=== PATIENT | female | born 2000 | race Caucasian/White ===

== ENCOUNTER 2020-07-14 10:08 | Emergency (ER) | payer OTHER, SELFPAY ==
[2020-07-14 11:15] VITALS: BP 111/61; PULSE 78; RESP 16; TEMP 36.6; O2SAT 99; BMI 28.3
--- NOTE | 2020-07-14 11:55 | ED_ITS ---
HPI - Skin/Abscess/Foreign Bdy General Chief complaint: Skin/Abscess/Foreign Body Stated complaint: allergic reaction Time Seen by Provider: 07/14/20 11:46 Source: patient Mode of arrival: ambulatory Limitations: no limitations History of Present Illness HPI narrative: 19 y/o female with history of eczema presenting with worsening skin rash and eczema to her entire body for the last 1 week. She has been taking Benadryl and her home Claritin without improvement. She has tried topical benadryl and hydrocortisone but it severely kyle her rash. She states it is so itchy that she can barely sleep at night. It is worse in the flexor surface of her arms and her bilateral thighs. She denies new lotions, detergents, soaps or creams. She has been avoiding all of those things given her known sensitive skin and difficulty controlling her eczema. She has never seen a geological science teacher for this before. MD complaint: rash Onset (ago): week(s) (1) Tetanus up to date: yes Location: generalized Severity: severe Quality: burning and pruritic Related Data Previous Rx's Medication Instructions Recorded cephalexin 500 mg PO TID 7 Days #21 cap 07/14/20 hydrocortisone 1 appl TOPICAL TID PRN #28 g 07/14/20 prednisone 10 mg PO PER PKG DIR #48 ea 07/14/20 Allergies Allergy/AdvReac Type Severity Reaction Status Date / Time peanut [PEANUT] Allergy Unknown UNKNOWN Verified 07/14/20 11:18 Review of Systems Review of Systems: Constitutional: No Fever, No Chills Gastrointestinal: No Nausea, No Vomiting Musculoskeletal: No joint pain, No Myalgias Skin: + Skin Lesions, + rash Neuro: No Weakness, No Numbness Psych: + Anxiety/Panic, No Depression Heme/Lymph: No Bruising, No Lymphadenopathy PMFSH Past Medical History Attestation statement: The following information was validated with the patient. Medical History delivery delivered Eczema Social History Social History Alcohol intake: never Smoking Status: Never smoker Use of substances other than those prescribed or required for medical reasons: No Advance Directives: Yes Advance Directives Information Provided: Yes Advance Directives on File: No Patient : No Physical Exam Vital Signs: Vital Signs: Last Vital Signs Temp 97.8 F 07/14/20 11:15 Pulse 78 07/14/20 11:15 Resp 16 07/14/20 11:15 BP 111/61 07/14/20 11:15 Pulse Ox 99 07/14/20 11:15 Body Mass Index 28.3 Appearance: Alert. Oriented X3. No acute distress. HEENT: normal inspection CVS: Normal heart rate and rhythm. Pulses normal. Respiratory: No respiratory distress. CTAB Extremities: diffuse erythematous, scaling dry maculopapular rash on bilateral upper extremities, bilateral thighs and chest wall. flexor areas of bilateral arms are excoriated, ertythematous and warm to touch. Neuro: Oriented X 3. No motor deficit. No sensory deficit. Course Course Course Narrative: 19 y/o female presenting with diffuse severe eczema. This will require systemic steroids for treatment as well as increase in antihistamines. Will treat empirically for possible cellulitis in her bilateral AC fossas given warmth and excoriations. She was encouraged to f/u with her PCP JOSSY and importance of following up with a geological science teacher was stressed. She expressed understanding and will follow up. Stable for discharge. Critical Care Time Critical Care Time Critical Care Time: No Discharge Plan Discharge Clinical Impression: Eczema Qualifiers: Eczema type: flexural Qualified Code(s): L20.82 - Flexural eczema Patient Disposition: Home, Self-Care Instructions: Eczema (ED) Additional Instructions: Take the prescribed prednisone taper as directed - start taking TOMORROW - you were given your 1st dose in the ER today. Take Benadryl 50 mg every 6 hours as needed for itching. Take the prescribed antibiotic as directed for possible superimposed skin infection. Follow up with your doctor. Recommend follow up with Dermatology. Prescriptions: New prednisone 10 mg tablets,dose pack 10 mg PO PER PKG DIR Qty: 48 RF: 0 hydrocortisone 2.5 % cream 1 appl topical TID PRN (Reason: itching) Qty: 28 RF: 0 cephalexin 500 mg capsule 500 mg PO TID 7 Days Qty: 21 RF: 0 Referrals: Dianne Muñiz PA-C [Physician Agronomy Location Manager] - 2 days Interventions: ED Discharge Assessment Last Done: 07/14/20 12:20 Discharge Date/Time: 07/14/20 12:21
[2020-07-14] MEDS: predniSONE 20 MG TABLET 60 MG PO (11:58)
[2020-07-14] MEDS: diphenhydrAMINE HCL 25 MG TABLET 50 MG PO (11:59)
[2020-07-14] MEDS: cephALEXin 250 MG CAPSULE 500 MG PO (11:59)
== END 2020-07-14 12:21 | disposition home or self-care (01) ==
PROVIDERS: Emergency Provider Emergency Medicine Emergency Medical Services; PCP Physician Assistant
DX: L20.82 Flexural eczema (principal)
CPT/HCPCS: 99283; 99284; Q0163

== ENCOUNTER 2020-09-05 18:57 | Emergency (ER) | payer OTHER, SELFPAY ==
[2020-09-05 19:28] VITALS: BP 123/74; PULSE 115; RESP 20; TEMP 529.4; TEMP 985; O2SAT 100; BMI 29.2
[2020-09-05 22:44] LABS: MANUAL DIFF FLAG NO
[2020-09-05 22:45] LABS: Basophils Percent Auto 0.2 % (0-2); Eosinophils Absolute Auto 0.8 X10*3/uL (0.0-0.4); Eosinophils Percent Auto 8.4 % (0-4); Hematocrit 42.2 % (37-47); Imm Gran Abs Auto 0.03 X10*3/uL (0.00-0.03); Imm Gran Pct Auto 0.3 % (0.0-0.4); Lymphocytes Percent Auto 22.2 % (20-40); Mean Corpuscular HGB Conc 33.2 g/dl (31.0-35.0); Mean Corpuscular Hemoglobin 27.3 pg (27.0-33.0); Mean Corpuscular Volume 82.4 fL (80-98); Mean Platelet Volume 10.9 fL (9.4-12.3); Monocytes Absolute Auto 0.5 X10*3/uL (0.1-1.2); Monocytes Percent Auto 5.2 % (2-11); Neutrophils Absolute Auto 5.7 X10*3/uL (2.0-8.3); Neutrophils Percent Auto 63.7 % (45-73); Platelet Count 284 X10*3/uL (160-400); Red Blood Count 5.12 X10*6/uL (4.20-5.50); Red Cell Distribution Width 13.9 % (11.0-16.0); White Blood Count 8.9 X10*3/uL (4.8-10.8)
--- NOTE | 2020-09-05 22:45 | ED_ITS ---
HPI - Allergic Reaction General Chief complaint: Allergic Reaction Stated complaint: allergic reaction Time Seen by Provider: 09/05/20 22:29 Source: patient Mode of arrival: ambulatory Limitations: no limitations History of Present Illness HPI narrative: Patient comes emergency room complaining of an allergic reaction, itchy skin. Denies shortness of breath. Patient states that she is known to have eczema, but over the last month, every day that she wakes up, she has diffuse hives and itching. Patient states that she is known to be allergic to peanuts. Patient states this happens to her every day but today the hives have not gone away yet. Patient denies shortness of breath, no throat swelling, no foreign body sensation. Approximately 5 hours ago, patient took Benadryl at home, denies using any steroids. MD complaint: allergic reaction and hives Related Data Previous Rx's Medication Instructions Recorded cephalexin 500 mg PO TID 7 Days #21 cap 07/14/20 hydrocortisone 1 appl TOPICAL TID PRN #28 g 07/14/20 prednisone 10 mg PO PER PKG DIR #48 ea 07/14/20 desonide 1 appl TOPICAL BID #118 ml 09/06/20 famotidine [Pepcid] 40 mg PO DAILY PRN #7 tab 09/06/20 prednisone 50 mg PO DAILY #5 tab 09/06/20 Allergies Allergy/AdvReac Type Severity Reaction Status Date / Time peanut [PEANUT] Allergy Unknown UNKNOWN Verified 07/14/20 11:18 Review of Systems Review of Systems: Constitutional : No Weight loss, No Fever, No Chills, No Night Sweats, No Fatigue, No Malaise ENT/Mouth : No Hearing loss, No Ear Pain, No Nasal Congestion, No Sinus Pain, No Hoarseness, No sore throat, No Rhinorrhea, No Swallowing Difficulty Eyes: No Eye Pain, No Swelling, No Redness, No Foreign Body, No Discharge, No Vision Changes Cardiovascular : No Chest Pain, No SOB, No Dyspnea on Exertion, No Orthopnea, No Edema, No Palpitations Respiratory : No Cough, No Sputum, No Wheezing, No Smoke Exposure, No Dyspnea Gastrointestinal : No Nausea, No Vomiting, No Diarrhea, No Constipation, No abdominal Pain, No Hematochezia, No Melena Genitourinary : no irregular bleeding, No Dysuria, No Urinary Frequency, No Hematuria, No Urinary Incontinence, No Urgency, No Flank Pain, No Urinary Flow Changes, No Hesitancy Musculoskeletal : No joint pain, No Myalgias, No Joint Swelling Skin : Diffuse hives, itching Neuro : No Weakness, No Numbness, No Paresthesias, No Loss of Consciousness, No Dizziness, No Headache Psych : No Anxiety/Panic, No Depression, No SI/HI/AH/VH, No Social Issues, Heme/Lymph: No Bruising, No Bleeding,No Lymphadenopathy Endocrine : No Polyuria, No Polydipsia, No Temperature Intolerance [facility] Past Medical History Medical History delivery delivered Eczema Social History Social History Alcohol intake: never Advance Directives: No Advance Directives Information Provided: Yes Physical Exam Vital Signs: Vital Signs: Last Vital Signs Temp 98.4 F 09/06/20 00:00 Pulse 104 H 09/06/20 00:00 Resp 22 H 09/06/20 00:00 BP 124/84 09/06/20 00:00 Pulse Ox 100 09/06/20 00:00 Body Mass Index 29.2 Appearance: Alert. Oriented X3. No acute distress. Eyes: Pupils equal, round and reactive to light. ENT: Pharynx normal. Neck: Normal inspection. Neck supple. No lymph nodes noted. No crepitus CVS: Normal heart rate and rhythm. Pulses normal. Normal S1 and S2 Respiratory: No respiratory distress. Breath sounds normal. No Wheezing. No rales Abdomen: Soft and nontender. No rigidity. No distention. good BS x4 Skin: Patient has diffuse eczema, but additionally she has diffuse hives head to toe Extremities: No lower extremity edema. No lower extremity edema. No Lacerations. No Rash Neuro: Oriented X 3. No motor deficit. No sensory deficit. Moving all extermities. No slurred speech. Course Course Course Narrative: Patient received 2 courses of Solu-Medrol, Pepcid, Benadryl. The skin did improve, however patient does have significant overlying eczema. Patient will follow-up with her primary care physician, states she has an appointment in November with Dermatology. In the meantime patient will be sent home with prednisone. MDM - Allergic Reaction Lab Data Result diagrams: 09/05/20 22:40 09/05/20 22:40 Labs: Lab Results 09/05/20 09/05/2021 Range/Units 22:40 22:40 00:20 WBC 8.9 (4.8-10.8) X10*3/uL RBC 5.12 (4.20-5.50) X10*6/uL Hgb 14.0 (12.0-16.0) g/dl Hct 42.2 (37-47) % MCV 82.4 (80-98) fL MCH 27.3 (27.0-33.0) pg MCHC 33.2 (31.0-35.0) g/dl RDW 13.9 (11.0-16.0) % Plt Count 284 (160-400) X10*3/uL MPV 10.9 (9.4-12.3) fL Immature Gran % (Auto) 0.3 (0.0-0.4) % Neut % (Auto) 63.7 (45-73) % Lymph % (Auto) 22.2 (20-40) % Moffat % (Auto) 5.2 (2-11) % Eos % (Auto) 8.4 H (0-4) % Baso % (Auto) 0.2 (0-2) % Lymph # (Auto) 2.0 (1.2-4.9) X10*3/uL Moffat # (Auto) 0.5 (0.1-1.2) X10*3/uL Eos # (Auto) 0.8 H (0.0-0.4) X10*3/uL Baso # (Auto) 0.0 (0.0-0.2) X10*3/uL Abs Immat Gran (auto) 0.03 (0.00-0.03) X10*3/uL Absolute Neuts (auto) 5.7 (2.0-8.3) X10*3/uL Absolute Nucleated RBC 0.000 (0.0-0.012) X10*3/uL Nucleated RBC % (auto) 0.0 (0.0-0.2) /100WBC Sodium 142 (135-145) mmol/L Potassium 3.9 (3.3-5.1) mmol/L Chloride 109 H (96-108) mmol/L Carbon Dioxide 21 L (22-29) mmol/L Anion Gap 16 (12-20) BUN 7 L (9-16) mg/dL Creatinine 0.66 (0.5-1.4) mg/dL Estim Creat Clear Calc 120.9 Estimated GFR > 60 Random Glucose 99 (60-115) mg/dL Calcium 9.5 (8.4-10.2) mg/dL Urine Color YELLOW Urine Appearance HAZY Urine pH 7.5 (5.0-8.0) Ur Specific Davis 1.015 (1.005-1.025) Urine Protein 1+ H (NEG-TRACE) MG/DL Urine Glucose (UA) NEG (NEG) MG/DL Urine Ketones 5 (NEG) MG/DL Urine Blood NEG (NEG) Urine Nitrite NEG (NEG) Ur Leukocyte Esterase NEG (NEG) Urine RBC 0 (0) /HPF Urine WBC 0-2 (0-4) /HPF Ur Squamous Epith Cells 4+ /LPF Urine Bacteria TRACE /LPF Urine Mucus 2+ /LPF Discharge Plan Discharge Clinical Impression: Allergic reaction, Eczema Patient Disposition: Home, Self-Care Instructions: General Allergic Reaction (ED) Additional Instructions: Please follow-up with your primary care physician tomorrow. If you have any worsening or new symptoms, please return to the emergency room or call 911 Prescriptions: New prednisone 50 mg tablet 50 mg PO DAILY Qty: 5 RF: 0 famotidine [Pepcid] 40 mg tablet 40 mg PO DAILY PRN (Reason: allergic reaction) Qty: 7 RF: 0 desonide 0.05 % lotion 1 appl topical BID Qty: 118 RF: 0 No Action prednisone 10 mg tablets,dose pack 10 mg PO PER PKG DIR Qty: 48 RF: 0 hydrocortisone 2.5 % cream 1 appl topical TID PRN (Reason: itching) Qty: 28 RF: 0 cephalexin 500 mg capsule 500 mg PO TID 7 Days Qty: 21 RF: 0
[2020-09-05] MEDS: diphenhydrAMINE HCL 50 MG/ML VIAL IVPUSH (22:46)
[2020-09-05] MEDS: methylPREDNISolone Sod Succ 125 MG/2 ML VIAL IVPUSH (22:52)
[2020-09-05] MEDS: Famotidine/PF 20 MG/2 ML VIAL IVPUSH (22:53)
[2020-09-05 23:21] LABS: Anion Gap 16 (12-20); Blood Urea Nitrogen 7 mg/dL (9-16); Calcium 9.5 mg/dL (8.4-10.2); Carbon Dioxide 21 mmol/L (22-29); Chloride 109 mmol/L (96-108); Creatinine Clr Calc Pharmacy 120.9; Estimated Glomerular Filt Rate > 60; Glucose Random 99 mg/dL (60-115); Potassium 3.9 mmol/L (3.3-5.1); Sodium 142 mmol/L (135-145)
[2020-09-06] VITALS: BP 124/84; PULSE 104; RESP 22; TEMP 36.9; O2SAT 100
--- NOTE | 2020-09-06 | ECG_ITS ---
Test Reason : TACHY Blood Pressure : / mmHG Vent. Rate : 113 BPM Atrial Rate : 113 BPM P-R Int : 126 ms QRS Dur : 070 ms QT Int : 318 ms P-R-T Axes : 058 050 031 degrees QTc Int : 436 ms Sinus tachycardia Otherwise normal ECG No previous ECGs available Referred By: Linette Xie Electronically Signed By:Vu Vergara
[2020-09-06 00:28] LABS: Appearance Urine HAZY; Color Urine YELLOW; Glucose Urine UA NEG (NEG); Leukocyte Esterase Urine NEG (NEG); Nitrite Urine NEG (NEG); PH 7.5 (5.0-8.0); Specific Gravity - Urine 1.015 (1.005-1.025); Urine Blood NEG (NEG); Urine Ketones 5 MG/DL (NEG); Urine Protein 1+ MG/DL (NEG-TRACE)
[2020-09-06 00:38] LABS: Bacteria Urine TRACE /LPF; Mucus Urine 2+ /LPF; RBC Urine 0 /HPF (0); Squamous Epithelial Cell Urine 4+ /LPF; WBC Urine 0-2 /HPF (0-4)
[2020-09-06] MEDS: methylPREDNISolone Sod Succ 125 MG/2 ML VIAL IVPUSH (00:39)
[2020-09-06] MEDS: Famotidine/PF 20 MG/2 ML VIAL IVPUSH (00:43)
== END 2020-09-06 02:37 | disposition home or self-care (01) ==
PROVIDERS: Emergency Provider Emergency Medicine; PCP Physician Assistant
DX: L23.9 Allergic contact dermatitis, unspecified cause (principal); Z79.899 Other long term (current) drug therapy
CPT/HCPCS: 36415; 80048; 81001; 85025; 93005; 96374; 96375; 96376; 99284; J1200; J2930

== ENCOUNTER 2020-09-15 11:24 | Emergency (ER) | payer OTHER, SELFPAY ==
[2020-09-15 11:58] VITALS: BP 120/62; PULSE 100; RESP 18; TEMP 36.8; O2SAT 97; BMI 28.3
[2020-09-15] MEDS: 0.9 % Sodium Chloride 1,000 ML 999 ML IV (12:47)
[2020-09-15] MEDS: methylPREDNISolone Sod Succ 125 MG/2 ML VIAL IVPUSH (12:49)
[2020-09-15] MEDS: diphenhydrAMINE HCL 50 MG/ML VIAL IVPUSH (12:49)
[2020-09-15] MEDS: Famotidine/PF 20 MG/2 ML VIAL IVPUSH (12:50)
[2020-09-15 12:57] LABS: MANUAL DIFF FLAG NO
[2020-09-15 12:58] LABS: Basophils Percent Auto 0.2 % (0-2); Eosinophils Absolute Auto 0.8 X10*3/uL (0.0-0.4); Eosinophils Percent Auto 8.9 % (0-4); Hematocrit 44.1 % (37-47); Hemoglobin 14.6 g/dl (12.0-16.0); Imm Gran Abs Auto 0.02 X10*3/uL (0.00-0.03); Imm Gran Pct Auto 0.2 % (0.0-0.4); Lymphocytes Absolute Auto 1.9 X10*3/uL (1.2-4.9); Lymphocytes Percent Auto 20.7 % (20-40); Mean Corpuscular HGB Conc 33.1 g/dl (31.0-35.0); Mean Corpuscular Hemoglobin 27.1 pg (27.0-33.0); Mean Platelet Volume 10.7 fL (9.4-12.3); Monocytes Absolute Auto 0.6 X10*3/uL (0.1-1.2); Monocytes Percent Auto 6.4 % (2-11); Neutrophils Absolute Auto 5.9 X10*3/uL (2.0-8.3); Neutrophils Percent Auto 63.6 % (45-73); Platelet Count 312 X10*3/uL (160-400); Red Blood Count 5.38 X10*6/uL (4.20-5.50); Red Cell Distribution Width 14.2 % (11.0-16.0); White Blood Count 9.2 X10*3/uL (4.8-10.8)
--- NOTE | 2020-09-15 13:14 | ED_ITS ---
HPI - General Adult General Chief complaint: General Medical Stated complaint: rash Time Seen by Provider: 09/15/20 12:09 Source: patient Mode of arrival: ambulatory Limitations: no limitations History of Present Illness HPI narrative: 19-year-old female with nonsignificant past medical history presents to the ED with reoccurring full-body rash. Patient states she was seen in the ED about a week ago with similar rash was prescribed medications including 5 days of prednisone with good improvement however states immediately after stopping the medication the rash redeveloped and seems to be coming back worse. Denies any shortness of breath chest pain abdominal pain or vomiting does admit to mild nausea at times. Still is unsure of exposure or source of rash although she has multiple environmental/food allergies. Due to concern she felt she needed to be seen. No reports of fevers or chills no other family members at home with similar rash. Related Data Previous Rx's Medication Instructions Recorded cephalexin 500 mg PO TID 7 Days #21 cap 07/14/20 hydrocortisone 1 appl TOPICAL TID PRN #28 g 07/14/20 prednisone 10 mg PO PER PKG DIR #48 ea 07/14/20 desonide 1 appl TOPICAL BID #118 ml 09/06/20 famotidine [Pepcid] 40 mg PO DAILY PRN #7 tab 09/06/20 prednisone 50 mg PO DAILY #5 tab 09/06/20 prednisone See Taper PO DAILY #31 tab 09/15/20 Allergies Allergy/AdvReac Type Severity Reaction Status Date / Time peanut [PEANUT] Allergy Unknown UNKNOWN Verified 09/15/20 11:58 Review of Systems Review of Systems: Constitutional : No Weight loss, No Fever, No Chills, No Night Sweats, No Fatigue, No Malaise ENT/Mouth : No Hearing loss, No Ear Pain, No Nasal Congestion, No Sinus Pain, No Hoarseness, No sore throat, No Rhinorrhea, No Swallowing Difficulty Eyes: No Eye Pain, No Swelling, No Redness, No Foreign Body, No Discharge, No Vision Changes Cardiovascular : No Chest Pain, No SOB, No Dyspnea on Exertion, No Orthopnea, No Edema, No Palpitations Respiratory : No Cough, No Sputum, No Wheezing, No Smoke Exposure, No Dyspnea Gastrointestinal : + Nausea, No Vomiting, No Diarrhea, No Constipation, No a bdominal Pain, No Hematochezia, No Melena Genitourinary : no irregular bleeding, No Dysuria, No Urinary Frequency, No Hematuria, No Urinary Incontinence, No Urgency, No Flank Pain, No Urinary Flow Changes, No Hesitancy Musculoskeletal : No joint pain, No Myalgias, No Joint Swelling Skin : No Skin Lesions, + rash Neuro : No Weakness, No Numbness, No Paresthesias, No Loss of Consciousness, No Dizziness, No Headache Psych : No Anxiety/Panic, No Depression, No SI/HI/AH/VH, No Social Issues, Heme/Lymph: No Bruising, No Bleeding,No Lymphadenopathy Endocrine : No Polyuria, No Polydipsia, No Temperature Intolerance [facility] Past Medical History Attestation statement: The following information was validated with the patient. Source: old records reviewed and obtained from family Medical History delivery delivered Eczema Social History Social History Alcohol intake: never Advance Directives: No Advance Directives Information Provided: Yes Patient : No Physical Exam Vital Signs: Vital Signs: Last Vital Signs Temp 97.9 F 09/15/20 14:21 Pulse 99 09/15/20 14:21 Resp 16 09/15/20 14:21 BP 126/59 L 09/15/20 14:21 Pulse Ox 100 09/15/20 14:21 Body Mass Index 28.3 vital signs have been reviewed as normal and appeared to be correct. Blood pressure normal. Heart rate normal. Respiration rate normal. Temperature normal. Oxygen saturation normal. Appearance: Alert. Oriented X3. No acute distress. Head: Normal external exam. Normocephalic. Atraumatic. No Rivera signs noted. No raccoon eyes noted Eyes: Conjunctiva and sclera normal. ENT: EAC normal. Moist mucous membranes. No drooling noted. No muffled voice noted. Neck: Normal inspection. Neck supple. FROM. No meningeal signs. CVS: Pulses normal throughout. Regular rate and rhythm noted Respiratory: No respiratory distress. Painless inspiration. No accessory muscle usage noted lungs are clear without wheezing rhonchi or rales Abdomen: No visible injury noted. Back: Full range of motion noted. Skin: Skin warm and dry. Patient with diffuse urticarial rash erythematous base blanchable in nature involving the entire torso upper extremities and lower extremities. Small involvement of left face. No oral involvement. Extremities: No lower extremity edema. Extremities exhibit normal range of motion. Neuro: Oriented X 3. No motor deficit. No sensory deficit. Course Course Course Narrative: Patient's labs without significant change patient feels significant improvement after medications of the discharge is safe with prolong ed 14 days steroid taper close outpatient Allergy follow-up patient comfortable with this plan will discharge home this time. Medical Decision Making MDM Narrative Medical decision making narrative: Patient's vital signs are stable and she is afebrile. Patient presented to the emergency department with reports of return of diffuse body rash on exam patient has an urticarial rash to the entire body no secondary signs of anaphylaxis however given severity feel she would benefit from repeat blood work as well as IV fluids, Solu-Medrol, Benadryl, famotidine. Ultimately patient does need to see an cheese factory worker to figure out what is causing her acute immune response will likely require additional steroids for home will continue to monitor and reassess pending the above. Of note no acute infectious concerns for cause of rash no red flags on exam. Lab Data Result diagrams: 09/15/20 12:39 09/15/20 12:39 Labs: Lab Results 09/15/20 09/15/20 09/15/20 Range/Units 12:39 12:39 12:39 WBC 9.2 (4.8-10.8) X10*3/uL RBC 5.38 (4.20-5.50) X10*6/uL Hgb 14.6 (12.0-16.0) g/dl Hct 44.1 (37-47) % MCV 82.0 (80-98) fL MCH 27.1 (27.0-33.0) pg MCHC 33.1 (31.0-35.0) g/dl RDW 14.2 (11.0-16.0) % Plt Count 312 (160-400) X10*3/uL MPV 10.7 (9.4-12.3) fL Immature Gran % (Auto) 0.2 (0.0-0.4) % Neut % (Auto) 63.6 (45-73) % Lymph % (Auto) 20.7 (20-40) % Smyth % (Auto) 6.4 (2-11) % Eos % (Auto) 8.9 H (0-4) % Baso % (Auto) 0.2 (0-2) % Lymph # (Auto) 1.9 (1.2-4.9) X10*3/uL Smyth # (Auto) 0.6 (0.1-1.2) X10*3/uL Eos # (Auto) 0.8 H (0.0-0.4) X10*3/uL Baso # (Auto) 0.0 (0.0-0.2) X10*3/uL Abs Immat Gran (auto) 0.02 (0.00-0.03) X10*3/uL Absolute Neuts (auto) 5.9 (2.0-8.3) X10*3/uL Absolute Nucleated RBC 0.000 (0.0-0.012) X10*3/uL Nucleated RBC % (auto) 0.0 (0.0-0.2) /100WBC Sodium 139 (135-145) mmol/L Potassium 3.6 (3.3-5.1) mmol/L Chloride 106 (96-108) mmol/L Carbon Dioxide 24 (22-29) mmol/L Anion Gap 13 (12-20) BUN 10 (9-16) mg/dL Creatinine 0.72 (0.5-1.4) mg/dL Estim Creat Clear Calc 109.1 Estimated GFR > 60 Random Glucose 126 H (60-115) mg/dL Calcium 9.2 (8.4-10.2) mg/dL Total Bilirubin 0.5 (0.0-1.0) mg/dL AST 24 (5-31) U/L ALT 15 (0-31) U/L Alkaline Phosphatase 67 (39-117) U/L Total Protein 7.4 (6.5-8.0) g/dL Albumin 4.0 (3.5-5.0) g/dL Beta HCG, Quant < 2 mIU/mL Discharge Plan Discharge Clinical Impression: Allergic reaction Qualifiers: Encounter type: initial encounter Qualified Code(s): T78.40XA - Allergy, unspecified, initial encounter Patient Disposition: Home, Self-Care Instructions: Urticaria (ED), General Allergic Reaction (ED) Additional Instructions: Take steroid taper as directed follow-up with cheese factory worker within the next week return if symptoms progress again or you develop shortness of breath/vomiting Prescriptions: New prednisone 10 mg tablet See Taper mg PO DAILY Qty: 31 RF: 0 No Action prednisone 50 mg tablet 50 mg PO DAILY Qty: 5 RF: 0 famotidine [Pepcid] 40 mg tablet 40 mg PO DAILY PRN (Reason: allergic reaction) Qty: 7 RF: 0 desonide 0.05 % lotion 1 appl topical BID Qty: 118 RF: 0 prednisone 10 mg tablets,dose pack 10 mg PO PER PKG DIR Qty: 48 RF: 0 hydrocortisone 2.5 % cream 1 appl topical TID PRN (Reason: itching) Qty: 28 RF: 0 cephalexin 500 mg capsule 500 mg PO TID 7 Days Qty: 21 RF: 0 Referrals: Stalin Kennedy DO [Physician] - 1 week Interventions: ED Discharge Assessment Last Done: 09/15/20 15:16 Discharge Date/Time: 09/15/20 15:16 Print Language: Iraqi
[2020-09-15 13:36] LABS: Alanine Aminotransferase 15 U/L (0-31); Alkaline Phosphatase 67 U/L (39-117); Anion Gap 13 (12-20); Aspartate Amino Transferase 24 U/L (5-31); Bilirubin Total 0.5 mg/dL (0.0-1.0); Blood Urea Nitrogen 10 mg/dL (9-16); Calcium 9.2 mg/dL (8.4-10.2); Carbon Dioxide 24 mmol/L (22-29); Chloride 106 mmol/L (96-108); Creatinine Clr Calc Pharmacy 109.1; Estimated Glomerular Filt Rate > 60; Glucose Random 126 mg/dL (60-115); Potassium 3.6 mmol/L (3.3-5.1); Sodium 139 mmol/L (135-145); Total Protein 7.4 g/dL (6.5-8.0)
[2020-09-15 13:42] LABS: HCG Quantitative < 2 mIU/mL
[2020-09-15 14:21] VITALS: BP 126/59; PULSE 99; RESP 16; TEMP 36.6; O2SAT 100
== END 2020-09-15 15:16 | disposition home or self-care (01) ==
PROVIDERS: Physician Assistant; Emergency Provider Emergency Medicine Emergency Medical Services
DX: T78.40XA Allergy, unspecified, initial encounter (principal); R21 Rash and other nonspecific skin eruption; X58.XXXA Exposure to other specified factors, initial encounter
CPT/HCPCS: 36415; 80053; 84702; 85025; 96361; 96374; 96375; 99284; J1200; J2930

== ENCOUNTER 2024-08-14 17:05 | Emergency (ER) | payer OTHER, SELFPAY ==
[2024-08-14 17:25] VITALS: BP 131/95; PULSE 94; RESP 18; TEMP 37.2; O2SAT 99; BMI 25.8
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
[2024-08-14 19:14] VITALS: BP 124/82; PULSE 77; RESP 14; TEMP 36.7; O2SAT 98
[2024-08-14 19:29] LABS: UPreg QC Valid YES; Urine Pregnancy NEGATIVE (NEGATIVE)
[2024-08-14 19:43] LABS: Alanine Aminotransferase 11 U/L (0-31); Aspartate Amino Transferase 25 U/L (5-31); Creatinine Clr Calc Pharmacy 115.3; Estimated Glomerular Filt Rate > 60
[2024-08-14 19:46] LABS: HCG Quantitative < 2 mIU/mL
--- NOTE | 2024-08-14 20:30 | MHC.EDTECH ---
SANE nurses at bedside
[2024-08-14] MEDS: SANE Doxycycline Monohydrate 100 MG CAPSULE PO (22:47)
[2024-08-14] MEDS: SANE Dolutegravir Sodium 50 MG TAB KIT PO (22:47)
[2024-08-14] MEDS: SANE Emtricit/Tenofov DF 200/300 TABLET KIT 1 TAB PO (22:47)
[2024-08-14] MEDS: metroNIDAZOLE 500 MG TABLET PO (22:48)
[2024-08-14] MEDS: cefTRIAXone sodium 500 MG, Lidocaine HCl 1 % MPF 1 ML IM (22:48)
[2024-08-14] MEDS: Ondansetron ODT 4 MG TAB.RAPDIS TRANSLINGU (22:51)
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
[2024-08-14 23:23] VITALS: BP 109/67; PULSE 68; TEMP 36.7; O2SAT 98
[2024-08-15 08:36] LABS: HBS Num1 4.57 mIU/mL (0-7.99); HBsAGNum1 0.42 S/CO (0.00-0.99); HIV Num 1 4.36 S/CO (0.00-0.99); Hepatitis B Surface Antigen Negative (Negative); ~HepC Num1 0.13 S/CO (0.00-0.79); ~Hepatitis B Surface Antibody NONREACTIVE (Nonreactive); ~Hepatitis C Antibody Nonreactive (Nonreactive)
[2024-08-15 08:54] LABS: Syphilis Screen Nonreactive (Nonreactive)
[2024-08-15 09:36] LABS: HIV AB/AG Nonreactive (Nonreactive); HIV Num 2 0.08 S/CO; HIV Num 3 0.09 S/CO
[2024-08-15 11:24] LABS: Bacterial Vaginosis PCR POSITIVE (Negative); Candida Group PCR NOT DETECTED (Not Detect); Candida glab krusei PCR NOT DETECTED (Not Detect); Trichomonas vaginalis PCR NOT DETECTED (Not Detect)
[2024-08-15 14:05] LABS: CT PCR NOT DETECTED (Not Detect.); NG PCR NOT DETECTED (Not Detect.)
== END 2024-08-15 00:28 | disposition home or self-care (01) ==
PROVIDERS: Physician Assistant Medical; Emergency Provider Emergency Medicine Emergency Medical Services
DX: T76.21XA Adult sexual abuse, suspected, initial encounter (principal); Z20.2 Contact with and (suspected) exposure to infections with a predominantly sexual mode of transmission; Z79.899 Other long term (current) drug therapy
CPT/HCPCS: 36415; 81025; 81515; 82565; 84450; 84460; 84702; 86706; 86780; 86803; 87340; 87389; 87491; 87591; 96372; 99283; 99285; J0696; J2003